=== PATIENT | male | born 1965 | race Caucasian/White ===

== ENCOUNTER 2023-04-25 09:22 | Day surgery (SDC) | payer BC ==
[2023-04-24 12:58] VITALS: BMI 32.5
[~2023-04-25 09:22] MED LIST: EPINEPHrine 0.3 MG in Ophthalmic Irrigation Solution 500 ML IRR SCH; Midazolam HCl 2 mg/2 ml Vial ONE; fentaNYL 50 mcg/mL 1 mL Vial ONE
[2023-04-25] MEDS ORDERED: Cyclopentolate 0.5% Opth Drops 15 ML BOT ONE (09:41)
[2023-04-25] MEDS ORDERED: PHENYLEPHRINE-NS 100 MCG/ML 10 ML SYRINGE ONE (09:41)
[2023-04-25] MEDS ORDERED: PHENYLephrine 2.5% Ophth Soln 15 ml Bottle ONE (09:42)
[2023-04-25] MEDS ORDERED: Famotidine/PF 20 mg/2ml Vial ONE (09:53)
[2023-04-25] MEDS ORDERED: Lidocaine 1% PF 5 ML VIAL ONE (11:32)
[2023-04-25] MEDS ORDERED: Triamcinolone 40 MG/ML VIAL ONE (11:32)
[2023-04-25] MEDS ORDERED: CEFAZOLIN 1 GM VIAL ONE (11:32)
[2023-04-25] MEDS ORDERED: PROPOFOL 200 MG/20 ML VIAL ONE (11:32)
[2023-04-25] MEDS ORDERED: Lidocaine 4% PF 5 ML AMP ONE (11:32)
[2023-04-25] MEDS ORDERED: Ondansetron PF 4 MG/2 ML Vial ONE (11:32)
[2023-04-25] MEDS ORDERED: Bupivacaine 0.75% 10 ML VIAL ONE (11:32)
[2023-04-25] MEDS ORDERED: Maxitrol 0.1% Opth Oint 3.5 GM TUBE ONE (11:32)
== END 2023-04-25 13:48 | disposition home or self-care (01) ==
LOC: SDC 09:22
PROVIDERS: ATTEND Ophthalmology Retina Specialist
PROC: 08PK3JZ Removal of Synthetic Substitute from Left Lens, Percutaneous Approach (ICD-10-PCS; principal; 2023-04-25)
PROC: 08RK3JZ Replacement of Left Lens with Synthetic Substitute, Percutaneous Approach (ICD-10-PCS; principal; 2023-04-25)
PROC: 08T53ZZ Resection of Left Vitreous, Percutaneous Approach (ICD-10-PCS; 2023-04-25)
DX: T85.22XA Displacement of intraocular lens, initial encounter (principal)
CPT/HCPCS: J0690; J2250; J2405; J2704; J3010; J3301; J3490; S0028; V2632